=== PATIENT | male | born 1985 | race Caucasian/White ===

== ENCOUNTER 2021-11-09 20:10 | Emergency (ER) | payer OTHER ==
[~2021-11-09] VITALS: Ht 170.2 cm; Wt 77.1 kg
[~2021-11-09 20:10] MED LIST: CEPH500 PO; CODACE30 PO; Cleocin HCl300 MG PO; HERBAL SUPPLEMENTS; HYDACE5
== END 2021-11-09 22:24 | disposition home or self-care (01) ==
LOC: ER 20:10
DX: S91.112A Laceration without foreign body of left great toe without damage to nail, initial encounter (principal); W29.3XXA Contact with powered garden and outdoor hand tools and machinery, initial encounter; F17.210 Nicotine dependence, cigarettes, uncomplicated; Z23 Encounter for immunization; Z88.0 Allergy status to penicillin; Z88.1 Allergy status to other antibiotic agents
CPT/HCPCS: 90471; 90714; 99282-25